=== PATIENT | female | born 1960 | race Caucasian/White ===

== ENCOUNTER → 2016-11-22 | Outpatient (CLI) | payer OTHER ==
[~2016-11-22] MED LIST: AMOX875T PO; ESTR62TA GT; OXYB5TA PO; PRIL20CA9 PO
--- NOTE | 2016-11-22 10:01 | REP ---
CT IACS WITHOUT CONTRAST: HISTORY: Bilateral tinnitus. The internal auditory canals, cochlea, vestibules and semicircular canals are normal in appearance. The ossicles are normal in configuration and position. The scutum are intact. There are areas of dehiscence in the tegmen bilaterally. The middle ear cavities and mastoid air cells are clear. Minimal mucosal thickening is present in the right ethmoid sinus. The nasopharynx is normal in appearance. A 2.7 cm partially calcified meningioma is present arising from the cribriform plate. IMPRESSION: 1. Normal CT IACS. 2. There is a 2.7 cm partially calcified meningioma arising from the cribriform plate. MRI of the brain without and with contrast is recommended for further evaluation. Signed by Vasquez Ellsworth MD 11/22/2016 10:23 A
== END ==
LOC: M RAD 08:07
DX: D32.9 Benign neoplasm of meninges, unspecified (principal)

== ENCOUNTER → 2017-01-25 | Outpatient (CLI) | payer OTHER ==
--- NOTE | 2017-01-26 08:16 | REP ---
MR angiography the brain without contrast: History: Bilateral tinnitus. Technique: 3-D [id number] MR angiography of the brain is acquired in the usual fashion and maximal intensity projection images were generated in rotational format about the vertical and horizontal axes. In addition, source axial T1-weighted images are viewed in cine mode. MR angiographic findings: The distal vertebral arteries are patent and co-dominant. Basilar artery is a little tortuous but widely patent. The posterior cerebral and superior cerebellar vessels are normal and symmetric. The distal internal carotid arteries are unremarkable. Anterior and middle cerebral arteries appear intact. There is no visible acuña aneurysm or arteriovenous malformation. Impression: Unremarkable MR angiography the brain. Signed by Pk Machado MD 01/26/2017 08:08 A
--- NOTE | 2017-01-26 08:38 | REP ---
MRI study of the brain and internal auditory canals: Without and with IV contrast: History: Bilateral tinnitus. Comparison is made with CT study of the internal auditory canals from November 22, 2016. This showed a 2.7 cm meningioma arising from the cribriform plate. Gadolinium enhancement dose: 13 ml of intravenous ProHance. MR technique: Axial and coronal and sagittal imaging planes are utilized. T1 and T2-weighted sequences include turbo spin-echo, spin echo, FLAIR, and diffusion weighted scans. 3D gradient echo sequence is included with thin sections and post gadolinium enhanced axial and coronal imaging planes are utilized. Findings: No bony calvarial lesion is seen. Craniocervical junction and upper cervical cord are normal in appearance. Medulla, anibal, midbrain and cerebellar hemispheres are unremarkable. The internal auditory canals are normal and symmetric. The contents are normal on thin section T2-weighted imaging. No CP angle cistern mass is seen. No intercanalicular or extracanalicular abnormal gadolinium enhancement is seen in either CP angle cistern or in either internal auditory canal. No other cranial nerve lesion is seen. There is no evidence to suggest acute ischemia intracranially on diffusion weighted scans. No evidence of intracranial hemorrhage is seen. Today's study confirms the presence of a somewhat lobulated extra-axial mass arising from the anterior inferior aspect of the falx. This shows similar signal intensity on FLAIR and turbo spin echo T2 and precontrast T1 sequences to normal lawler matter. It is slightly heterogeneous. Homogeneous enhancement is seen within the lesion on postcontrast study compatible with a meningioma. It does not appear to arise from the cribriform plate however, but rather the anteroinferior falx. It measures 2.8 x 2.9 x 3.0 cm. There is no evidence of adjacent edema. No other extra-axial lesion is seen. Scan is otherwise unremarkable. Impression: 3.0 cm meningioma arising from the anterior inferior falx. Otherwise normal MRI brain and posterior fossa IAC examination. Signed by Pk Machado MD 01/26/2017 10:43 A
== END ==
LOC: M RAD 16:13
PROVIDERS: ATTEND Specialist
DX: D32.9 Benign neoplasm of meninges, unspecified (principal); H93.13 Tinnitus, bilateral; H90.3 Sensorineural hearing loss, bilateral; H93.A1 Pulsatile tinnitus, right ear

== ENCOUNTER → 2017-04-14 | Outpatient (CLI) | payer OTHER ==
[~2017-04-14] MED LIST changes: -OXYB5TA PO; +OXYB5TAB10 PO
[2017-04-14 18:01] LABS: BASO # 0.1 K/mm3 (0.0-0.2); BASO % 1.4 % (0.0-1.0); EOS # 0.2 K/mm3 (0.0-0.50); EOS % 2.3 % (0.0-3.0); LARGE UNSTAINED CELL # 0.1 K/mm3 (0.0-0.4); LARGE UNSTAINED CELL % 2.1 % (0.0-4.0); LYMPH # 2.8 K/mm3 (1.5-4.5); LYMPH % 39.7 % (24.0-44.0); MEAN CORPUSCULAR HEMOGLOBIN 34.1 pg (27.0-33.0); MEAN CORPUSCULAR HGB CONC 34.5 g/dl (32.0-36.5); MEAN CORPUSCULAR VOLUME 98.8 fl (80.0-96.0); MONO # 0.5 K/mm3 (0.0-0.8); MONO % 6.9 % (0.0-5.0); NEUTROPHILS # 3.1 K/mm3 (1.8-7.7); NEUTROPHILS % 47.5 % (36.0-66.0); PLATELET COUNT, AUTOMATED 289 k/mm3 (150-450); WHITE BLOOD COUNT 6.6 K/mm3 (4.0-10.0)
[2017-04-14 18:08] LABS: ALBUMIN 3.8 GM/DL (3.2-5.2); ALBUMIN/GLOBULIN RATIO 1.27 (1.00-1.93); ALKALINE PHOSPHATASE 76 U/L (45-117); ALT/SGPT 26 U/L (12-78); ANION GAP 6 MEQ/L (8-16); AST/SGOT 17 U/L (15-37); BILIRUBIN,TOTAL 0.3 MG/DL (0.2-1.0); BLOOD UREA NITROGEN 13 MG/DL (7-18); CALCIUM LEVEL 9.1 MG/DL (8.5-10.1); CARBON DIOXIDE LEVEL 28 MEQ/L (21-32); CHLORIDE LEVEL 109 MEQ/L (98-107); CREATININE FOR GFR 0.74 MG/DL (0.55-1.02); GLOMERULAR FILTRATION RATE > 60.0 (>51); GLUCOSE, FASTING 77 MG/DL (70-105); POTASSIUM SERUM 4.2 MEQ/L (3.5-5.1); SODIUM LEVEL 143 MEQ/L (136-145); TOTAL PROTEIN 6.8 GM/DL (6.4-8.2)
[2017-04-14 18:51] LABS: ERYTHROCYTE SEDIMENTATION RATE 10 mm/hr (0-30)
[2017-04-15 09:55] LABS: ALBUMIN % 61.8 % (55.8-66.1); GAMMA GLOBULIN % 12.4 % (11.1-18.8)
== END ==
LOC: M SMT 11:13
PROVIDERS: ATTEND Psychiatry & Neurology Neurology
DX: R51 Headache (principal)

== ENCOUNTER → 2017-10-14 | Outpatient (REF) | payer OTHER | LOC: M LAB REF 12:14 | DX: J02.9 Acute pharyngitis, unspecified (principal) | CPT/HCPCS: 87081 ==

== ENCOUNTER → 2017-10-20 | Outpatient (CLI) | payer OTHER | LOC: M WHC 09:50 | DX: Z12.31 Encounter for screening mammogram for malignant neoplasm of breast (principal) | CPT/HCPCS: 77067 ==

== ENCOUNTER → 2017-11-03 | Outpatient (REF) | payer OTHER ==
[2017-11-03 13:07] LABS: BASO # 0.1 10^3/uL (0.0-0.2); BASO % 1.7 % (0.0-1.0); EOS # 0.2 10^3/uL (0.0-0.50); EOS % 2.5 % (0.0-3.0); HEMATOCRIT 41.4 % (36.0-47.0); HEMOGLOBIN 13.8 g/dl (12.0-16.0); IMMATURE GRANULOCYTE # 0.1 10^3/uL (0-0); IMMATURE GRANULOCYTE % 0.7 % (0-0); LYMPH # 3.5 10^3/uL (1.5-4.5); MEAN CORPUSCULAR HEMOGLOBIN 31.8 pg (27.0-33.0); MEAN CORPUSCULAR HGB CONC 33.3 g/dl (32.0-36.5); MEAN CORPUSCULAR VOLUME 95.4 fl (80.0-96.0); MONO # 0.9 10^3/uL (0.0-0.8); MONO % 10.4 % (0.0-5.0); NEUTROPHILS # 3.7 10^3/uL (1.8-7.7); NEUTROPHILS % 43.7 % (36.0-66.0); PLATELET COUNT, AUTOMATED 411 10^3/uL (150-450); RED BLOOD COUNT 4.34 10^6/uL (4.00-5.40); WHITE BLOOD COUNT 8.4 10^3/uL (4.0-10.0)
[2017-11-03 13:18] LABS: ALBUMIN 3.8 GM/DL (3.2-5.2); ALBUMIN/GLOBULIN RATIO 1.19 (1.00-1.93); ALKALINE PHOSPHATASE 98 U/L (45-117); ALT/SGPT 32 U/L (12-78); ANION GAP 5 MEQ/L (8-16); AST/SGOT 21 U/L (7-37); BILIRUBIN,TOTAL 0.2 MG/DL (0.2-1.0); BLOOD UREA NITROGEN 10 MG/DL (7-18); CARBON DIOXIDE LEVEL 29 MEQ/L (21-32); CHLORIDE LEVEL 108 MEQ/L (98-107); CHOLESTEROL LEVEL 173 MG/DL (<200); CHOLESTEROL RISK RATIO 3.844 (<5); CREATININE FOR GFR 0.74 MG/DL (0.55-1.02); GLOMERULAR FILTRATION RATE > 60.0 (>51); GLUCOSE, FASTING 86 MG/DL (70-105); HDL CHOLESTEROL 45 MG/DL (>40); NON-HDL-C 128 MG/DL; POTASSIUM SERUM 4.4 MEQ/L (3.5-5.1); SODIUM LEVEL 142 MEQ/L (136-145); TRIGLYCERIDES LEVEL 200 MG/DL (<150)
[2017-11-03 13:22] LABS: TOTAL 25(OH) VITAMIN D 32.4 NG/ML (30.0-100.0)
== END ==
LOC: M SFHCADAM 11:14
DX: N39.46 Mixed incontinence (principal); F17.210 Nicotine dependence, cigarettes, uncomplicated; K21.9 Gastro-esophageal reflux disease without esophagitis
CPT/HCPCS: 84443

== ENCOUNTER → 2017-11-10 | Outpatient (REF) | payer OTHER ==
[2017-11-10 21:17] LABS: FREE T3 3.1 PG/ML (2.2-4.0)
== END ==
LOC: M SFHCADAM 13:33
DX: E01.0 Iodine-deficiency related diffuse (endemic) goiter (principal)

== ENCOUNTER → 2017-11-29 | Outpatient (CLI) | payer OTHER | LOC: M RAD 07:12 | DX: E04.2 Nontoxic multinodular goiter (principal) | CPT/HCPCS: 76536 ==

== ENCOUNTER → 2017-12-20 | Outpatient (REF) | payer OTHER | LOC: M LAB REF 12:15 | DX: E04.1 Nontoxic single thyroid nodule (principal) ==

== ENCOUNTER → 2018-05-23 | Outpatient (CLI) | payer OTHER ==
[~2018-05-23] MED LIST changes: -AMOX875T PO; +E-Z-GAS II EFFERVESCENT PACKET (SODIUM BICARB./CITRIC ACID/SIMETHICONE) As Ordered; +E-Z-HD 98% w/w 340GM SUSP BTL As Ordered; +E-Z-PAQUE 96% w/w SUSP 176GM BTL As Ordered; -ESTR62TA GT; -OXYB5TAB10 PO; -PRIL20CA9 PO
== END ==
LOC: M RAD 08:13
DX: K21.9 Gastro-esophageal reflux disease without esophagitis (principal); K44.9 Diaphragmatic hernia without obstruction or gangrene
CPT/HCPCS: 74241

== ENCOUNTER 2018-08-30 10:14 | Outpatient (RCR) | payer OTHER | END 2018-09-15 | LOC: M PT 10:14 | DX: N39.46 Mixed incontinence (principal) | CPT/HCPCS: 97110 ==

== ENCOUNTER 2018-09-02 11:56 | Emergency (ER) | payer OTHER | END 2018-09-02 13:19 | disposition home or self-care (01) | LOC: M ED 11:56 | DX: K04.7 Periapical abscess without sinus (principal); K02.9 Dental caries, unspecified; Z88.8 Allergy status to other drugs, medicaments and biological substances; Z79.899 Other long term (current) drug therapy | CPT/HCPCS: 99283 ==

== ENCOUNTER → 2018-11-01 | Outpatient (CLI) | payer OTHER ==
[~2018-11-01] MED LIST changes: +AMOX875T PO; -E-Z-GAS II EFFERVESCENT PACKET (SODIUM BICARB./CITRIC ACID/SIMETHICONE) As Ordered; -E-Z-HD 98% w/w 340GM SUSP BTL As Ordered; -E-Z-PAQUE 96% w/w SUSP 176GM BTL As Ordered; +ESTR62TA GT; +OXYB5TAB10 PO; +PENI500T PO; +PERC5TAB12 PO; +PRIL20CA9 PO
--- NOTE | 2018-11-01 08:55 | REPMRS ---
Patient History The patient states she has not had a clinical breast exam in over a year. Patient is postmenopausal. No known family history of cancer. Taking estrogen for 11 years 11 months. Digital Woman Screen Mammo: November 01, 2018 - Exam #: [id number] Bilateral CC and MLO view(s) were taken. Technologist: Gricelda Anderson, Technologist Prior study comparison: October 20, 2017, digital woman screen mammo performed at [facility]. October 14, 2016, digital woman screen mammo performed at [facility]. September 19, 2015, digital woman screen mammo performed at [facility]. FINDINGS: The breast tissue is heterogeneously dense. This may lower the sensitivity of mammography. There is a stable, well-circumscribed subcentimeter nodule in each breast unchanged from multiple prior studies. There is a moderate amount of heterogeneously dense fibroglandular tissue which is fairly symmetric. There is no interval development of dominant mass, architectural distortion, or clustered microcalcification typical of malignancy. There has been no change in the appearance of the mammogram from the prior studies. 3-D tomosynthesis shows no additional findings. Assessment: BI-RADS/ACR category 2 mammogram. Benign finding(s). Recommendation Routine screening mammogram of both breasts in 1 year (for women over age 40). This patient's Lifetime Breast Cancer RIsk is estimated at 6.5 %. This mammogram was interpreted with the aid of an FDA-approved computer-aided dectection system. Electronically Signed By: Jose Machado MD 11/01/18 [id number]
--- NOTE | 2018-11-02 09:47 | DEXA ---
AP SPINE L1 - L4 1.218 0.2 0.1 LT FEMUR TOTAL 1.025 0.1 0.9 LT NECK 0.960 -0.6 0.5 RT FEMUR TOTAL 0.994 -0.1 0.6 RT NECK 0.941 -0.7 2.4 TOTAL BODY TOTAL OTHER COMMENTS: Normal bone densitometry of the spine and hips. The density of the spine has decreased 6.5% since the initial exam on 03/24/2006. The spine density has decreased 0.8% since the most recent exam on 10/14/2016. The density of the left hip has decreased 3.4% since the initial exam on 03/24/2006. The density of the left hip has increased 1.0% since the most recent exam on 10/14/2016. The density of the right hip has decreased 6.5% since the initial exam on 03/24/2006. The density of the right hip has decreased 0.2% since the most recent exam on 10/14/2016. FOLLOW-UP: Recommendation for the next bone density exam: 2 years. ANNI
== END ==
LOC: M WHC 07:53
PROVIDERS: ATTEND Physician Assistant Medical
DX: Z12.31 Encounter for screening mammogram for malignant neoplasm of breast (principal); Z78.0 Asymptomatic menopausal state

== ENCOUNTER → 2018-12-22 | Outpatient (CLI) | payer OTHER ==
--- NOTE | 2018-12-22 12:55 | REP ---
RIGHT SHOULDER, THREE VIEWS: Three views of the right shoulder performed. There is no acute fracture or dislocation. There is mild spurring at the acromioclavicular joint. IMPRESSION: Mild degenerative changes of acromioclavicular joint. Electronically Signed by Randy Trejo MD 12/25/2018 11:16 A
--- NOTE | 2018-12-22 13:38 | REP ---
CHEST, TWO VIEWS: COMPARISON: 12/08/2014. There is no evidence of acute infiltrate. No pleural effusion is seen. The heart is normal in size. The mediastinal silhouette is unremarkable. The visualized osseous structures are intact. There are mild degenerative changes of the spine. IMPRESSION: No acute pulmonary disease. Electronically Signed by Randy Trejo MD 12/25/2018 11:17 A
== END ==
LOC: M ADAMS 11:44
PROVIDERS: ATTEND Physician Assistant Medical
DX: M19.011 Primary osteoarthritis, right shoulder (principal); M25.511 Pain in right shoulder; R05 Cough

== ENCOUNTER → 2019-02-03 | Outpatient (REF) | payer OTHER ==
[2019-02-03 19:06] LABS: BASO # 0.1 10^3/uL (0.0-0.2); BASO % 1.2 % (0.0-1.0); EOS # 0.1 10^3/uL (0.0-0.50); EOS % 1.6 % (0.0-3.0); HEMATOCRIT 43.5 % (36.0-47.0); HEMOGLOBIN 14.4 g/dl (12.0-15.5); LYMPH # 2.7 10^3/uL (1.5-4.5); LYMPH % 32.7 % (24.0-44.0); MEAN CORPUSCULAR HEMOGLOBIN 32.4 pg (27.0-33.0); MEAN CORPUSCULAR HGB CONC 33.1 g/dl (32.0-36.5); NEUTROPHILS # 4.3 10^3/uL (1.8-7.7); PLATELET COUNT, AUTOMATED 408 10^3/uL (150-450); RED BLOOD COUNT 4.44 10^6/uL (4.00-5.40); WHITE BLOOD COUNT 8.3 10^3/uL (4.0-10.0)
[2019-02-03 19:26] LABS: ALBUMIN 3.7 GM/DL (3.2-5.2); ALT/SGPT 22 U/L (12-78); BILIRUBIN,TOTAL 0.4 MG/DL (0.2-1.0); BLOOD UREA NITROGEN 13 MG/DL (7-18); CALCIUM LEVEL 8.9 MG/DL (8.5-10.1); CARBON DIOXIDE LEVEL 30 MEQ/L (21-32); CHLORIDE LEVEL 105 MEQ/L (98-107); CHOLESTEROL LEVEL 169 MG/DL (<200); CHOLESTEROL RISK RATIO 3.673 (<5); CREATININE FOR GFR 0.67 MG/DL (0.55-1.30); GLOMERULAR FILTRATION RATE > 60.0 (>51); GLUCOSE, FASTING 87 MG/DL (70-100); HDL CHOLESTEROL 46 MG/DL (>40); LDL CHOLESTEROL 98.8 MG/DL (<100); NON-HDL-C 123 MG/DL; POTASSIUM SERUM 4.1 MEQ/L (3.5-5.1); SODIUM LEVEL 140 MEQ/L (136-145); THYROID STIMULATING HORMONE 0.958 uIU/ML (0.358-3.740); TOTAL PROTEIN 6.8 GM/DL (6.4-8.2); TRIGLYCERIDES LEVEL 121 MG/DL (<150)
== END ==
LOC: M SFHCADAM 08:13
PROVIDERS: ATTEND Physician Assistant Medical
DX: G47.33 Obstructive sleep apnea (adult) (pediatric) (principal); F17.210 Nicotine dependence, cigarettes, uncomplicated; K21.9 Gastro-esophageal reflux disease without esophagitis; R05 Cough

== ENCOUNTER → 2019-02-03 | Outpatient (CLI) | payer OTHER | LOC: M ADAMS 11:33 | PROVIDERS: ATTEND Physician Assistant Medical | DX: G47.33 Obstructive sleep apnea (adult) (pediatric) (principal); F17.210 Nicotine dependence, cigarettes, uncomplicated; K21.9 Gastro-esophageal reflux disease without esophagitis; R05 Cough ==

== ENCOUNTER → 2019-11-14 | Outpatient (CLI) | payer OTHER ==
[~2019-11-14] MED LIST changes: +CALC600T60 PO; +DEPA250T2 PO; +DITR1TAB PO; +HYDR-643 PO; +OMEP-218 PO
--- NOTE | 2019-11-14 17:18 | REP ---
BILATERAL MAMMOGRAM WITH 3D TOMOSYNTHESIS: No family history of breast cancer. Kyle Kathleen lifetime risk of breast cancer 6.4%. COMPARISON: 11/01/2018 as well as other prior exams. MLO and CC views of both breasts performed. Moderately dense breast parenchyma is again noted bilaterally. A subcentimeter nodular opacity in the posterior upper outer quadrant of the right breast is stable. Another is seen superficially in the lower inner left breast, stable. There is an apparent well circumscribed nodule 1.7 cm in diameter in the outer right breast at about 8-o'clock region. No other new mass is seen. No architectural distortion is seen. No clustered microcalcifications are seen. IMPRESSION: ACR 0 incomplete. There appears to be a well circumscribed nodule in the 8-o'clock region of the right breast, mid third. Recommend spot compression views and ultrasound to further evaluate. BIRADS 0: BI-RADS/ACR category 0 mammogram, Incomplete: Need additional imaging evaluation and/or prior mammograms for comparison. This mammogram was interpreted with the aid of an FDA-approved computer-aided detection system. The patient states she/he has not had a clinical breast exam in over a year. The patient letter being requested is M0.
== END ==
LOC: M WHC 13:43
PROVIDERS: ATTEND Nurse Practitioner Women's Health
DX: Z12.31 Encounter for screening mammogram for malignant neoplasm of breast (principal); N63.11 Unspecified lump in the right breast, upper outer quadrant

== ENCOUNTER → 2019-11-26 | Outpatient (CLI) | payer OTHER ==
--- NOTE | 2019-11-26 17:12 | REP ---
Digital diagnostic unilateral right breast mammography with CAD and focused right breast sonography: History: Screening mammography November 14, 2019 was BIRADS category zero because of a well-circumscribed nodule in the 8 o'clock position for which diagnostic imaging was recommended. Comparison mammography is also reviewed from October 20, 2017 and November 01, 2018. Findings: Magnified focal spot compression CC true mediolateral, and MLO views of the right breast confirm the presence of a rounded oval shaped fairly well circumscribed opacity in the right breast. Breast parenchyma is heterogeneously dense as before. No other suspicious abnormality is observed mammographically. Sonographic findings: The lateral aspect of the right breast is scanned sonographically. At 9 o'clock position in the right breast, 2 cm from the nipple there is a simple cyst measuring 1.5 x 1.4 x 0.7 cm in diameter. This is felt to account for the mammographic opacity. Addition, in the 1 o'clock position of the right breast there is a hypoechoic lesion with well-circumscribed margins measuring 1.2 x 1.0 x 0.9 cm, 1 cm from the nipple. This has a well defined back wall and enhanced through transmission. No observable Doppler flow. This does not meet the criteria of a simple cyst and may be complex cyst versus fibroadenoma versus other lesion. Impression: BIRADS category four suspicious right breast imaging. There is a simple cyst corresponding to the mammographic opacity in the right lateral breast at 9 o'clock. However, ultrasound demonstrates a second hypoechoic lesion 1.2 cm in diameter in the 1 o'clock position, 1 cm from the nipple which may be complex cyst versus fibroadenoma. Ultrasound guided needle biopsy and/or aspiration recommended for this lesion. This does not mammographic correlate BIRADS 4: BI-RADS/ACR category 4 mammogram. Suspicious Abnormality - biopsy should be considered. This mammogram was interpreted with the aid of an FDA-approved computer-aided detection system. The patient letter being requested is m4 .
== END ==
LOC: M WHC 09:23
PROVIDERS: ATTEND Nurse Practitioner Women's Health
DX: D48.61 Neoplasm of uncertain behavior of right breast (principal)

== ENCOUNTER → 2019-12-12 | Outpatient (CLI) | payer OTHER ==
[2019-12-12 15:09] VITALS: BP 168/98
--- NOTE | 2019-12-12 16:30 | REP ---
Digital diagnostic unilateral right breast mammography: With CAD: History: Marker clip placement views. Comparison mammography and sonography November 26, 2019. The patient is status post ultrasound-guided needle biopsy procedure with clip placement. Findings: Mediolateral and craniocaudal views of the right breast demonstrate a needle biopsy marker clip projecting just medial to the plane of the nipple superiorly in the right breast at approximately 1 o'clock position. There was no mammographic abnormality in this location. There is no evidence of hematoma. Impression: Marker clip in position superiorly in the right breast as above.
--- NOTE | 2019-12-12 19:43 | REP ---
Focused right breast sonography: History: Ultrasound guidance for ultrasound-guided needle biopsy right breast. Findings: Sonographic guidance is provided to Dr. Reeder who performed ultrasound-guided needle biopsy and marker clip placement procedure. The target is seen to be a 1.1 x 1.0 x 1.0 cm hypoechoic lesion as observed on November 26, 2019.
--- NOTE | 2019-12-12 20:40 | ROOPDOC ---
[facility] Report Of Operation Report of Operation DATE OF PROCEDURE: 12/12/19 PREPROCEDURE DIAGNOSES: Right breast mass, possibly cystic lesion POSTPROCEDURE DIAGNOSES: Right breast complex cystic lesion PROCEDURE: Ultrasound-guided attempted aspiration of right breast complex cystic lesion, ultrasound-guided biopsy of right breast complex cystic lesion SURGEON: Elvis Cazares INKING MACHINE TENDER: ANESTHESIA: Local ESTIMATED BLOOD LOSS: Approximately 1 mL. COMPLICATIONS: None REMARKS: Postprocedure mammogram showed clip in appropriate location DESCRIPTION OF PROCEDURE: Lidocaine 1% LOT [id number] Expiration 11/2020 Sodium Bicarbonate 8.4% LOT [id number] Expiration 06/2021 Hydromark clip LOT [id number] Expiration 04/2022 REF [id number] titanium shape 4 (close coil) Bx device: [employer] [id number] x10 cm LOT HUEN [id number] Expiration 09/2022 Informed consent was obtained. The most common risk and possible complications including bleeding, hematoma, bruising, infection, injury to surrounding structures were explained to the patient and she expressed understanding. Patient was taken to the procedure room and placed on the bed in the supine position with the right upper extremity placed above the head. Appropriate time out was done stating patients name, date of , and the procedure to be performed. The right breast was prepped and draped in the usual fashion. The ultrasound was used to confirm the location of the lesion in the right breast at 12:00 1.5 centimeters from the nipple. Plain Lidocaine 1% and 8.4% sodium bicarbonate 10:1 mix was used to numb the skin, the biopsy site and tissues along the anticipated biopsy tract. 18 G needle was used to tempt to aspirate content if the lesion as it is possible that it is a cyst. 2 cc of viscous brown material was aspirated. Attempt was made to try to aspirate entire cyst content but unfortunately it was unsuccessful. The cystic lesion did not collapse. Decision was made to proceed with the biopsy of the lesion. Small skin incision was made with blade number 11. BARD Marquee 14G cannula with introducer ([id number]) was inserted through the incision and advanced under the ultrasound guidance to position immediately adjacent to the lesion. Next, the introducer was removed and BARD Marquee 14G biopsy device was places in the cannula. Pre-biopsy imaging, and post-biopsy imaging were captured. Five good c ore biopsies were taken at various levels of the lesion. Specimen was placed in formaldehyde, labeled with appropriate biopsy site and patients name, and sent to pathology for evaluation. Next, the biopsy device was withdrawn and a clip introducer was inserted into the biopsy site via the cannula. The Hydromark clip was deployed under direct vision. Post-clip placement image was captured. Manual pressure over the biopsy cavity and tract was held after the clip introducer was withdrawn. No bleeding was noted upon removal of the pressure. Post-biopsy mammogram of the right breast was obtained and showed clip in expected position. Postprocedural dressing was placed. Patient tolerated procedure well. Discharge instructions were discussed with the patient and she expressed understanding. ELVIS CAZARES DO Dec 12, 2019 20:40
== END ==
LOC: M WHCPRO 13:27
PROVIDERS: ATTEND Surgery
DX: N64.89 Other specified disorders of breast (principal)

== ENCOUNTER → 2020-06-30 | Outpatient (REF) | payer OTHER ==
[2020-06-30 13:04] LABS: BASO # 0.1 10^3/uL (0.0-0.2); BASO % 1.1 % (0.0-1.0); EOS # 0.1 10^3/uL (0.0-0.5); EOS % 0.7 % (0.0-3.0); HEMATOCRIT 37.2 % (36.0-47.0); HEMOGLOBIN 13.3 g/dl (12.0-15.5); LYMPH # 2.7 10^3/uL (1.5-5.0); LYMPH % 33.2 % (24.0-44.0); MEAN CORPUSCULAR HEMOGLOBIN 33.4 pg (27.0-33.0); MEAN CORPUSCULAR HGB CONC 35.8 g/dl (32.0-36.5); MEAN CORPUSCULAR VOLUME 93.5 fl (80.0-96.0); MONO # 0.9 10^3/uL (0.0-0.8); MONO % 10.3 % (0.0-5.0); NEUTROPHILS # 4.5 10^3/uL (1.5-8.5); NEUTROPHILS % 54.1 % (36.0-66.0); PLATELET COUNT, AUTOMATED 462 10^3/uL (150-450); RED BLOOD COUNT 3.98 10^6/uL (4.00-5.40); WHITE BLOOD COUNT 8.3 10^3/uL (4.0-10.0)
[2020-06-30 13:27] LABS: ALT/SGPT 25 U/L (12-78); BILIRUBIN,TOTAL 0.3 MG/DL (0.2-1.0); BLOOD UREA NITROGEN 14 MG/DL (7-18); CALCIUM LEVEL 10.1 MG/DL (8.5-10.1); CARBON DIOXIDE LEVEL 32 MEQ/L (21-32); CHLORIDE LEVEL 94 MEQ/L (98-107); CHOLESTEROL LEVEL 126 MG/DL (<200); CREATININE FOR GFR 0.75 MG/DL (0.55-1.30); FREE T4 1.22 NG/DL (0.76-1.46); GLOMERULAR FILTRATION RATE > 60.0 (>51); GLUCOSE, FASTING 91 MG/DL (70-100); HDL CHOLESTEROL 39 MG/DL (>40); LDL CHOLESTEROL 63 MG/DL (<100); NON-HDL-C 87 MG/DL; POTASSIUM SERUM 4.3 MEQ/L (3.5-5.1); SODIUM LEVEL 131 MEQ/L (136-145); THYROID STIMULATING HORMONE 0.697 uIU/ML (0.358-3.740); TOTAL PROTEIN 6.7 GM/DL (6.4-8.2); TRIGLYCERIDES LEVEL 122 MG/DL (<150)
== END ==
LOC: M SFHCADAM 12:23
PROVIDERS: ATTEND Physician Assistant Medical
DX: I10 Essential (primary) hypertension (principal); K21.9 Gastro-esophageal reflux disease without esophagitis; R60.1 Generalized edema; E04.2 Nontoxic multinodular goiter

== ENCOUNTER → 2020-07-03 | Outpatient (CLI) | payer OTHER ==
--- NOTE | 2020-07-17 17:42 | REP ---
DIGITAL DIAGNOSTIC UNILATERAL RIGHT BREAST MAMMOGRAPHY WITH CAD, 3D TOMOGRAPHY, AND TARGETED RIGHT BREAST ULTRASOUND HISTORY: Six month follow-up. Benign biopsy under ultrasound guidance for a hypoechoic nodule. Simple cyst also seen on prior imaging. COMPARISON: Mammography 12/12/2019 and 11/26/2019. MAMMOGRAPHIC FINDINGS: The previously identified cyst is again seen in the upper outer quadrant measuring 1.3 cm in greatest diameter. There is a marker clip in the superomedial quadrant of the right breast, which is unchanged from the comparison mammogram done post biopsy on 12/12/2019. Breast parenchyma remains heterogeneously dense in a pattern which may inhibit the sensitivity of mammography. Volpara breast parenchymal density pattern is C. No other significant mammographic findings. SONOGRAPHIC FINDINGS: Targeted sonographic imaging of the right breast at the area of previous biopsy 1 o'clock position shows a smaller remnant of the biopsy target, measurements 5 x 4 x 5 mm. This remains heterogeneously hypoechoic. There is a HydroMARK clip adjacent to the lesion on sonography. No progressive change is seen. IMPRESSION: BI-RADS Category 2 benign findings. Annual screening mammography can resume. This mammogram was read with the assistance of an FDA approved computer-aided detection device. Patient letter: M2 dense. ANNI
== END ==
LOC: M WHC 09:30
PROVIDERS: ATTEND Surgery
DX: N60.01 Solitary cyst of right breast (principal); Z86.018 Personal history of other benign neoplasm
CPT/HCPCS: 76642; 77065; G0279

== ENCOUNTER → 2020-07-15 | Outpatient (CLI) | payer OTHER ==
--- NOTE | 2020-07-18 15:21 | ECHO ---
DATE OF PROCEDURE: 07/15/2020 Height: 154 cm Weight: 79 kg REFERRING PHYSICIAN: FLORECITA Davis INDICATION: Edema MEASUREMENTS: IV 1.1 LV 4.9 LVPW 0.9 LA 3.9 Aorta 2.7 IVC 1.2 Mitral E wave velocity 75, A wave 83. E prime septal 5.2 E prime lateral 7.9 FINDINGS: The study is of acceptable technical quality. The patient is in sinus rhythm. Normal LV size with normal LV systolic function, estimated left ventricular ejection fraction (LVEF) 60 to 65%. Right ventricle also appears to be normal size and has normal systolic function. Both atria appear normal. Aortic, mitral and tricuspid valves appear normal. Pulmonic valve was not well seen. No pericardial effusion is noted. Inferior vena cava is of normal size and appropriately collapses with inspiration indicative of normal central venous pressure. Aortic root, limited views of aortic arch and abdominal aorta all appear normal. Doppler interrogation reveals competent aortic and mitral valves. There is trace tricuspid insufficiency with normal calculated pulmonary artery pressure. Mitral inflow pattern and tissue Doppler imaging of mitral annulus reveal grade 1 diastolic dysfunction. CONCLUSIONS: 1. Study is of acceptable technical quality, the patient is in sinus rhythm. 2. Normal LV size with normal LV systolic function and grade 1 diastolic dysfunction. 3. No significant valvular disease. 4. Normal central venous pressure and normal pulmonary artery pressure. COMMENTS: No obvious explanation for peripheral edema. MTDD
== END ==
LOC: M CARPUL 09:24
PROVIDERS: ATTEND Physician Assistant Medical
DX: R60.9 Edema, unspecified (principal); I10 Essential (primary) hypertension

== ENCOUNTER → 2020-08-26 | Outpatient (CLI) | payer OTHER ==
--- NOTE | 2020-08-27 23:48 | ECWPNPC ---
PATIENT NAME: MICHAEL FUNES : 1960 GENDER: FEMALE VISIT DATE: 08/26/2020 DISCHARGE DATE: 08/26/20 1024 VISIT LOCKED DATE TIME: PHYSICIAN: ZAKI ADAM PHYSICIAN PAGER NO: ACTIVE RESOURCE: ZAKI ADAM REASON FOR APPOINTMENT 1. LOW BACK PAIN HISTORY OF PRESENT ILLNESS DEPRESSION SCREENING: PHQ-2 (2015 EDITION) LITTLE INTEREST OR PLEASURE IN DOING THINGS?NOT AT ALL FEELING DOWN, DEPRESSED, OR HOPELESS?NOT AT ALL TOTAL SCORE0 GENERAL: 60-YEAR-OLD FEMALE REFERRED BY FLACO BEL[facility] FOR EVALUATION OF CHRONIC LOW BACK PAIN. REPORTS LONG HISTORY OF INTERMITTENT LOW BACK PAIN ESPECIALLY AFTER EXERTION. STATES THAT SINCE SHE RETIRED 3 YEARS AGO AND HAS GAINED WEIGHT HER PAIN HAS INCREASED. CHIEF COMPLAINT IS BURNING PAIN IN BOTH LEGS AFTER WALKING 50 FEET. STATES HER SYMPTOMS RESOLVE WHEN SHE SITS DOWN. MRI OF THE LS-SPINE DONE RECENTLY IS BASICALLY WITHIN NORMAL LIMITS. SHOWING SOME MILD DEGENERATIVE CHANGES. DENIES NIGHTTIME AWAKENINGS DUE TO PAIN. STATES PAIN IMPROVES WITH REST AND TYLENOL. NERVE CONDUCTION STUDIES DONE OF THE LOWER EXTREMITIES HAVE BEEN WITHIN NORMAL LIMITS. STATES SHE ATTENDED ONE DAY OF PHYSICAL THERAPY AND THEN PRESCRIPTION RAN OUT. REVIEWED TREATMENT OPTIONS AVAILABLE AT OUR [facility]. SHE IS AWARE THAT IF HER SYMPTOMS GET WORSE AND INTERFERE WITH HER ADLS SHE WOULD BE ABLE TO RETURN HERE FOR REEVALUATION.- - -. FALL RISK SCREENING: SCREENING :NO FALLS REPORTED IN THE LAST YEAR PAIN SCREENING: PATIENT HAS A COMPLAINT OF ACUTE OR CHRONIC PAIN :YES LOCATION OF PAIN:LOW BACK INTENSITY OF PAIN (SCALE OF 1 TO 10):1 WHAT DOES YOUR PAIN FEEL LIKE:SHARP DURATION:INTERMITTENT PAIN IS INCREASED BY:ACTIVITIES, PROLONGED STANDING PATIENT STATES, "LEGS FEEL LIKE THEY ARE FIRE WHEN WALKING" PLAN/GOALS/TREATMENT/INTERVENTION/FOLLOW UP:SEE PLAN NURSING NOTE: - - -. PAIN CENTER INTAKE QUESTIONS: DO YOU HAVE A HISTORY OF MRSA? :NO DO YOU TAKE A BLOOD THINNERS? :NO DO YOU HAVE ANY BLEEDING DISORDERS? :NO ANY NEW NUMBNESS OR WEAKNESS IN YOUR LEGS OR ARMS? :NO ANY PACEMAKER,DEFIBRILLATOR, OR DORSAL COLUMN STIMULATOR? :NO DO YOU HAVE ANY RASHES OR OPEN SORES? :NO ARE YOU ALLERGIC TO IV DYE? :NO ARE YOU DIABETIC? :NO ANY NEW PROBLEMS WITH YOUR MEDICATIONS? :NO HAVE YOU RECEIVED A VACCINE IN THE PAST 30 DAYS? :NO DO YOU PLAN TO RECEIVE A VACCINE IN THE NEXT 21 DAYS? :NO DO YOU NEED ANY PRESCRIPTION? :NO DO YOU TAKE ANY IMMUNOSUPPRESSIVE MEDICATIONS? :NO CURRENT MEDICATIONS TAKING CALCIUM + D3 600-200 MG-UNIT TABLET 1 TAB(S) ORALLY TWICE A DAY TAKING DIVALPROEX SODIUM 500 MG TABLET DELAYED RELEASE ORALLY DAILY TAKING QUETIAPINE FUMARATE 25 MG TABLET 1 TABLET AT BEDTIME ORALLY ONCE A DAY TAKING CHLORTHALIDONE 25 MG TABLET 1 TABLET IN THE MORNING WITH FOOD ORALLY ONCE A DAY TAKING OXYBUTYNIN CHLORIDE ER 10 MG TABLET EXTENDED RELEASE 24 HOUR 1 TABLET ORALLY TWICE DAILY TAKING OMEPRAZOLE 20 MG CAPSULE DELAYED RELEASE TAKE ONE CAPSULE BY MOUTH TWICE A DAY MEDICATION LIST REVIEWED AND RECONCILED WITH THE PATIENT PAST MEDICAL HISTORY GERD MIXED URGE/STRESS URINARY INCONTINENCE FARIDA DEP RENEE 12/02 FEV1 2.48, REPEAT IN 6-12 M 09/02 MRI - BRAIN MENINGIOMA - DR CALLAHAN NONTOXIC MULTINODULAR GOITER, NEG FNA 12/20/17 HEADACHES - NEURO IRENE- CPAP CTS - L, DECLINES SURGERY 07/04 EKG LVH, LAE, RBBB - REFERRED TO [facility] 10/03 NEG STRESS ECHO, [facility] ORTHOSTATIC HYPOTENSION ALLERGIES ANTIHISTAMINE: RACING HEART - ALLERGY ZONISAMIDE: DIZZY, WORD SEARCHING - ALLERGY HYDROXYZINE HCL: "DIDN'T FEEL WELL" - ALLERGY TRAZODONE HCL: NIGHTMARES - ALLERGY SURGICAL HISTORY HYSTERECTOMY, TOTAL WITH BSO [address]CLAUDIA MANCIA 12/2017 COLONOSCOPY 03/17/16 RIGHT BREAST ULTRASOUND BIOPSY 11/2019 FAMILY HISTORY FATHER: ALIVE 79 YRS, EYE PROBLEMS, EMPHYSEMA/COPD - ESTRANGED MOST OF HER LIFE (L[place] IN [place]) MOTHER: ALIVE 76 YRS, HTN, HEAD WOOD GRINDER CANCER OVARIAN?, HYPERLIPIDEMIA SIBLINGS: ALIVE 55 YRS, REFUSES TO GO TO THE SON(S): ALIVE 36 YRS, HTN, HYPERLIPIDEMIA DAUGHTER(S): ALIVE 31 YRS, PCOS 1 BROTHER(S) . 1 SON(S) , 1 DAUGHTER(S) . NO KNOWN FIRST DEGREE RELATIVE WITH COLORECTAL CA, OR BREAST CA.FAMILY H/O: MIGRAINE, HTN, THYROID DISORDER, COPD, RA. SOCIAL HISTORY GENERAL: TOBACCO USE ARE YOU A:CURRENT SMOKER ARE YOU INTERESTED IN QUITTING?NOT READY TO QUIT PT DOES NOT WISH TO HAVE SMOKING CESSATION HANDOUT COUNSELED THE PATIENT ON SMOKING EFFECTS, EDUCATION [id number]/10/2020 HOW MANY CIGARETTES A DAY DO YOU SMOKE?11-20 HOW SOON AFTER YOU WAKE UP DO YOU SMOKE YOUR FIRST CIGARETTE?6-30 MIN HOW OFTEN DO YOU SMOKE CIGARETTES?EVERY DAY PATIENT COUNSELED ON THE DANGERS OF TOBACCO USE AND URGED TO QUIT:08/26/2020 LATEX QUESTIONNAIRE LATEX ALLERGY : HAVE YOU EVER DEVELOPED ANY TYPE OF REACTION AFTER HANDLING LATEX PRODUCTS SUCH RUBBER GLOVES, CONDOMS, DIAPHRAGMS, BALLOONS, SOCKS, OR UNDERWEAR?NO LATEX ALLERGY : HAVE YOU EVER DEVELOPED ANY TYPE OF REACTION DURING OR AFTER DENTAL APPOINTMENT, VAGINAL/RECTAL EXAMINATION, SURGICAL PROCEDURE, OR ANY OTHER EXPOSURE?NO LATEX RISK : HAVE YOU EVER HAD ANY DIFFICULTY BREATHING OR HIVES AFTER EATING OR HANDLING ANY FRUITS, OR VEGETABLES; SUCH KIWI, BANANAS, STONE FRUITS, OR CHESTNUTSNO LATEX RISK : DO YOU HAVE A PREVIOUS PERSONAL HISTORY OF MORE THAN NINE SURGERIES, SPINA BIFIDA, OR REPEATED CATHERIZATIONS? NO LATEX RISK : ARE YOU FREQUENTLY EXPOSED TO LATEX PRODUCTS IN YOUR OCCUPATION?NO DATE ASKED : 08/26/2020 ALCOHOL SCREENING DID YOU HAVE A DRINK CONTAINING ALCOHOL IN THE PAST YEAR?NO POINTS0 INTERPRETATIONNEGATIVE RECREATIONAL DRUG USE DRUG USE?NO CAFFEINE CAFFEINE USE?YES 1 POT OF COFFEE DAILY HOW OFTEN AND HOW MUCH? SEVERAL ALL DAY ON DAYS OFF LEARNING BARRIERS / SPECIAL NEEDS CHANGE FROM LAST VISIT?NO BARRIERS TO LEARNING?NO HEARING IMPAIRED?NO VISION IMPAIRED?NO COGNITIVELY IMPAIRED?NO READINESS TO LEARN?YES LEARNING PREFERENCES?NO LEARNING CAPABILITIES PRESENT?YES EMOTIONAL BARRIERS?NO SPECIAL DEVICES?NO OCCUPATION: [employer] 3 DAYS WEEKLY. DIET: REGULAR. EXERCISE: NO REGULAR EXERCISE. MARITAL STATUS: . OTHERS AT HOME: . ADVANCE DIRECTIVE ADVANCE DIRECTIVE DISCUSSED WITH PATIENT:YES DISCUSSED WITH PATIENT, PATIENT DENIES ASSISTANCE. HOSPITALIZATION/MAJOR DIAGNOSTIC PROCEDURE VAGINAL DELIVERIES 1983 REVIEW OF SYSTEMS CONSTITUTIONAL: ANY RECENT FEVER NO . CHILLS NO . WEIGHT CHANGE OF UNKNOWN REASONS NO . GASTROENTEROLOGY: NEW UNEXPLAINABLE CHANGES IN BOWEL CONTROL NO . CONSTIPATION NO . GENITOURINARY: ANY NEW CHANGE IN BLADDER CONTROL? NO . NEUROLOGY: NEW ONSET DIZZINESS OR NEUROLOGICAL CHANGES NOT MENTIONED NO . NEW NUMBNESS OR PAIN PATTERNS NOT MENTIONED AND PERTINENT TO TODAY'S VISIT NO . CARDIOLOGY: NEW CHEST PRESSURE NO . NEW CHEST PAIN NO . RESPIRATORY: UNEXPLAINABLE COUGH NO . NEW SHORTNESS OF BREATH NO . VITAL SIGNS WT 176.8 LBS, HT 61.5 IN, BMI 32.86 INDEX, BP 128/70 MM HG, HR 75 /MIN, RR 18 /MIN, TEMP 97.3 F, OXYGEN SAT % 96%, SAFE IN ENV? (Y/N) YES, NA INITIALS PR 09:44, REVIEWED BY: MONO ERICKSON RECREATION DIRECTOR. EXAMINATION GENERAL EXAMINATION: GENERALNO ACUTE DISTRESS, WELL NOURISHED AND HYDRATED. PSYCHAPPROPRIATE MOOD AND AFFECT . FACE:UNREMARKABLE. NECK:NO LYMPHADENOPATHY, SUPPLE, NO THYROMEGALLY, NO JVD OR BRUITS. ASSESSMENTS NEUROPATHY - G62.9 (PRIMARY) OTHER CHRONIC PAIN - G89.29 LOW BACK PAIN - M54.5 TREATMENT NEUROPATHY NOTES: PATIENT FOLLOWS CLOSELY WITH NEUROLOGY FOR BENIGN BRAIN LESION THAT THEY ARE FOLLOWING YEARLY. PATIENT MAY BENEFIT FROM A TRIAL OF GABAPENTIN FOR BURNING PAIN IN HER LOWER EXTREMITIES BUT I WILL LEAVE THAT TO FLACO BELTRAN'S DISCRETION. TODAY WE TALKED ABOUT THE IMPORTANCE OF A WALKING PROGRAM TO RECONDITION HER LOWER BACK AND IMPROVE TOLERANCE TO ACTIVITIES. THIS COULD ALSO HELP WITH WEIGHT REDUCTION . WE TALKED ABOUT WALKING FOR 10 MINUTES ON A FLAT SURFACE EVERY OTHER DAY AND OVER THE COURSE OF 2 OR 3 MONTHS INCREASE TO 20 MINUTES EVERY OTHER DAY. SHE COULD ALSO BENEFIT FROM HAVING PT EVALUATION AGAIN AND HOPEFULLY HAVE REGULAR VISITS WITH PHYSICAL THERAPY. PATIENT WILL CALL OUR OFFICE SHOULD HER CONDITION WORSEN WHERE SHE WOULD WANT TO CONSIDER AGGRESSIVE TREATMENT FOR UNCONTROLLED LOW BACK PAIN OR RADICULAR SYMPTOMS. 08/26/20 1015 DISCUSSED WITH PATIENT CURRENT TREATMENT PLAN, PATIENT VERBALIZES UNDERSTANDING, NO QUSTIONS OR CONCERNS AT THIS TIME. PROCEDURE CODES FA211 ESTABILISHED PATIENT [facility] CHARGE DISPOSITION & COMMUNICATION FOLLOW UP PATIENT WILL CALL FOR FOLLOW-UP IF NECESSARY (REASON: LOW BACK PAIN/LOWER EXTREMITY BURNING PAIN) ELECTRONICALLY SIGNED BY ZINA LUNDBERG ON 08/27/2020 AT 12:51 PM EST DISCLAIMER : THIS IS A VISIT SUMMARY EXTRACTED FROM THE [employer] CHART. IT IS NOT A COPY OF THE [employer] PROGRESS NOTE. ANNI
== END ==
LOC: M PAIN 09:30
PROVIDERS: ATTEND Nurse Practitioner Family
DX: G89.29 Other chronic pain (principal); G62.9 Polyneuropathy, unspecified; M54.5 Low back pain; K21.9 Gastro-esophageal reflux disease without esophagitis; E04.1 Nontoxic single thyroid nodule; G47.33 Obstructive sleep apnea (adult) (pediatric); Z79.899 Other long term (current) drug therapy; Z88.8 Allergy status to other drugs, medicaments and biological substances

== ENCOUNTER → 2020-11-17 | Outpatient (CLI) | payer OTHER ==
--- NOTE | 2020-11-17 10:21 | REPMRS ---
Patient History The patient states she had a clinical breast exam in July 2020. No known family history of cancer. Benign US guided breast biopsy. of the right breast, December 12, 2019. Took estrogen for 11 years 11 months. Digital Woman Screen Mammo: November 17, 2020 - Exam #: [id number] Bilateral CC and MLO view(s) were taken. Technologist: Dang Parker, Technologist Prior study comparison: July 03, 2020, right breast diagnostic unilateral mammo performed at [facility]. July 03, 2020, right breast ultrasound unilat limited performed at [facility]. December 12, 2019, right breast diagnostic unilateral mammo performed at [facility]. November 26, 2019, right breast ultrasound unilat limited performed at [facility]. November 01, 2018, bilateral digital woman screen mammo performed at [facility]. October 20, 2017, digital woman screen mammo performed at [facility]. FINDINGS: The breast tissue is heterogeneously dense. This may lower the sensitivity of mammography. The [employer] volumetric breast density category is: C. The previously identified upper outer quadrant cyst is again seen in the right breast. This is less prominent on craniocaudal view than on previous study. There is a marker clip] in the superomedial quadrant of the right breast unchanged. There is a stable superficial well-defined nodule in the inferomedial aspect of the left breast unchanged from multiple prior studies. There is a moderate amount of heterogeneously dense fibroglandular tissue which is fairly symmetric. There is no interval development of dominant mass, architectural distortion, or grouped microcalcification typical of malignancy. There has been no change in the appearance of the mammogram from the prior studies. 3-D tomosynthesis shows no additional findings. Assessment: BI-RADS/ACR category 2 mammogram. Benign Findings. Recommendation Routine screening mammogram of both breasts in 1 year (for women over age 40). This patient's [facility] Lifetime Breast Cancer RIsk is estimated at 6.2 %. This mammogram was interpreted with the aid of an FDA-approved computer-aided dectection system. Electronically Signed By: Jose Machado MD 11/17/20 [id number]
== END ==
LOC: M WHC 09:32
PROVIDERS: ATTEND Nurse Practitioner Women's Health
DX: Z12.31 Encounter for screening mammogram for malignant neoplasm of breast (principal); N60.01 Solitary cyst of right breast; N63.20 Unspecified lump in the left breast, unspecified quadrant

== ENCOUNTER → 2020-11-27 | Outpatient (REF) | payer OTHER ==
[2020-11-27 13:40] LABS: BLOOD UREA NITROGEN 11 MG/DL (7-18); CREATININE FOR GFR 0.72 MG/DL (0.55-1.30); GLOMERULAR FILTRATION RATE > 60.0 (>51)
== END ==
LOC: M LABDRWAD 12:12
PROVIDERS: ATTEND Neurological Surgery
DX: D32.0 Benign neoplasm of cerebral meninges (principal)

== ENCOUNTER → 2020-12-05 | Outpatient (REF) | payer OTHER ==
[2020-12-05 13:01] LABS: BASO # 0.1 10^3/uL (0.0-0.2); BASO % 0.9 % (0.0-1.0); EOS # 0.1 10^3/uL (0.0-0.5); EOS % 0.9 % (0.0-3.0); HEMATOCRIT 38.7 % (36.0-47.0); HEMOGLOBIN 13.4 g/dl (12.0-15.5); LYMPH # 2.9 10^3/uL (1.5-5.0); LYMPH % 38.2 % (24.0-44.0); MEAN CORPUSCULAR HEMOGLOBIN 32.8 pg (27.0-33.0); MEAN CORPUSCULAR HGB CONC 34.6 g/dl (32.0-36.5); MEAN CORPUSCULAR VOLUME 94.6 fl (80.0-96.0); MONO # 0.7 10^3/uL (0.0-0.8); MONO % 9.8 % (2.0-8.0); NEUTROPHILS # 3.7 10^3/uL (1.5-8.5); NEUTROPHILS % 49.5 % (36.0-66.0); PLATELET COUNT, AUTOMATED 441 10^3/uL (150-450); RED BLOOD COUNT 4.09 10^6/uL (4.00-5.40); WHITE BLOOD COUNT 7.5 10^3/uL (4.0-10.0)
[2020-12-05 13:28] LABS: ALBUMIN 3.5 GM/DL (3.2-5.2); ALT/SGPT 34 U/L (12-78); BILIRUBIN,TOTAL 0.2 MG/DL (0.2-1.0); BLOOD UREA NITROGEN 11 MG/DL (7-18); CALCIUM LEVEL 9.1 MG/DL (8.5-10.1); CARBON DIOXIDE LEVEL 32 MEQ/L (21-32); CHLORIDE LEVEL 94 MEQ/L (98-107); GLOMERULAR FILTRATION RATE > 60.0 (>51); GLUCOSE, FASTING 102 MG/DL (70-100); POTASSIUM SERUM 3.7 MEQ/L (3.5-5.1); SODIUM LEVEL 133 MEQ/L (136-145); TOTAL PROTEIN 6.5 GM/DL (6.4-8.2)
== END ==
LOC: M SFHCADAM 09:22
PROVIDERS: ATTEND Physician Assistant Medical
DX: I10 Essential (primary) hypertension (principal); F17.210 Nicotine dependence, cigarettes, uncomplicated; K21.9 Gastro-esophageal reflux disease without esophagitis; G47.33 Obstructive sleep apnea (adult) (pediatric); Z51.81 Encounter for therapeutic drug level monitoring

== ENCOUNTER → 2020-12-16 | Outpatient (CLI) | payer OTHER ==
--- NOTE | 2020-12-16 11:08 | DEXAMM ---
INDICATION: Z78.0 MENOPAUSE. COMPARISON: 11/01/2018 as well as other prior exams. TECHNIQUE: Bone density was measured using dual-energy x-ray absorptiometry (DEXA). FINDINGS: AP SPINE L1-L4 BMD 1.255 g/cm2 Young Adult T-Score 0.5 Age Matched Z-Score 1.6. LT FEMUR, TOTAL BMD 0.997 g/cm2 Young Adult T-Score -0.1 Age Matched Z-Score 0.8. LT NECK BMD 0.926 g/cm2 Young Adult T-Score -0.8 Age Matched Z-Score 0.4. RT FEMUR, TOTAL BMD 0.978 g/cm2 Young Adult T-Score -0.2 Age Matched Z-Score 0.6. RT NECK BMD 0.938 g/cm2 Young Adult T-Score -0.7 Age Matched Z-Score 0.5. IMPRESSION: There is normal bone density of the spine. There is normal bone density of the left hip. There is normal bone density of the right hip. The density of the spine has decreased 3.6% since the initial exam on 03/24/2006. The density of the spine increased 3.0% since most recent exam on 11/01/2018. The density of the left hip has decreased 6.0% since initial exam on 03/24/2006. The density of the left hip has decreased 2.7% since most recent exam on 11/01/2018. The density of the right hip has decreased 8.0% since the initial exam on 03/24/2006. The density of the right hip has decreased 1.6% since the most recent exam on 11/01/2018. FOLLOW-UP: Recommendation for the next bone density exam: 2 years. <Electronically signed by Randy Trejo > 12/16/20 1101
== END ==
LOC: M WHC 09:57
PROVIDERS: ATTEND Physician Assistant Medical
DX: Z78.0 Asymptomatic menopausal state (principal)

== ENCOUNTER → 2021-05-26 | Outpatient (REF) | payer OTHER | LOC: M SFHCADAM 08:42 | PROVIDERS: ATTEND Physician Assistant Medical | DX: F17.210 Nicotine dependence, cigarettes, uncomplicated (principal); K21.9 Gastro-esophageal reflux disease without esophagitis; G47.33 Obstructive sleep apnea (adult) (pediatric); I10 Essential (primary) hypertension; Z53.9 Procedure and treatment not carried out, unspecified reason ==

== ENCOUNTER → 2021-05-27 | Outpatient (REF) | payer OTHER ==
[2021-05-27 13:46] LABS: ALBUMIN 3.6 GM/DL (3.2-5.2); ALT/SGPT 32 U/L (12-78); BILIRUBIN,TOTAL 0.3 MG/DL (0.2-1.0); BLOOD UREA NITROGEN 9 MG/DL (7-18); CALCIUM LEVEL 9.5 MG/DL (8.5-10.1); CARBON DIOXIDE LEVEL 29 MEQ/L (21-32); CHLORIDE LEVEL 98 MEQ/L (98-107); CHOLESTEROL LEVEL 152 MG/DL (<200); CREATININE FOR GFR 0.61 MG/DL (0.55-1.30); GLOMERULAR FILTRATION RATE > 60.0 (>51); GLUCOSE, FASTING 82 MG/DL (70-100); HDL CHOLESTEROL 40 MG/DL (>40); LDL CHOLESTEROL 82 MG/DL (<100); NON-HDL-C 112 MG/DL; POTASSIUM SERUM 3.9 MEQ/L (3.5-5.1); SODIUM LEVEL 133 MEQ/L (136-145); TOTAL PROTEIN 6.7 GM/DL (6.4-8.2); TRIGLYCERIDES LEVEL 148 MG/DL (<150)
== END ==
LOC: M SFHCADAM 12:25
PROVIDERS: ATTEND Physician Assistant Medical
DX: F17.210 Nicotine dependence, cigarettes, uncomplicated (principal); K21.9 Gastro-esophageal reflux disease without esophagitis; G47.33 Obstructive sleep apnea (adult) (pediatric); I10 Essential (primary) hypertension

== ENCOUNTER → 2021-07-01 | Outpatient (REF) | payer OTHER | LOC: M SFHCADAM 16:02 | PROVIDERS: ATTEND Physician Assistant | DX: R09.81 Nasal congestion (principal) ==

== ENCOUNTER → 2021-11-25 | Outpatient (REF) | payer OTHER ==
[~2021-11-25] MED LIST changes: +OMEP-173 PO; -OMEP-218 PO
[2021-11-25 16:56] LABS: BLOOD UREA NITROGEN 10 MG/DL (7-18); CREATININE FOR GFR 0.72 MG/DL (0.55-1.30); GLOMERULAR FILTRATION RATE > 60.0 (>51)
== END ==
LOC: M LABDRWAD 15:54
PROVIDERS: ATTEND Physician Assistant
DX: D32.0 Benign neoplasm of cerebral meninges (principal)

== ENCOUNTER → 2021-11-30 | Outpatient (REF) | payer OTHER ==
[2021-11-30 12:51] LABS: BASO # 0.1 10^3/uL (0.0-0.2); BASO % 1.4 % (0.0-1.0); EOS # 0.1 10^3/uL (0.0-0.5); EOS % 1.7 % (0.0-3.0); HEMATOCRIT 38.4 % (36.0-47.0); HEMOGLOBIN 13.4 g/dl (12.0-15.5); LYMPH # 2.2 10^3/uL (1.5-5.0); LYMPH % 37.3 % (24.0-44.0); MEAN CORPUSCULAR HEMOGLOBIN 32.5 pg (27.0-33.0); MEAN CORPUSCULAR HGB CONC 34.9 g/dl (32.0-36.5); MEAN CORPUSCULAR VOLUME 93.2 fl (80.0-96.0); MONO # 0.7 10^3/uL (0.0-0.8); NEUTROPHILS # 2.7 10^3/uL (1.5-8.5); NEUTROPHILS % 47.1 % (36.0-66.0); PLATELET COUNT, AUTOMATED 385 10^3/uL (150-450); RED BLOOD COUNT 4.12 10^6/uL (4.00-5.40); WHITE BLOOD COUNT 5.8 10^3/uL (4.0-10.0)
[2021-11-30 13:21] LABS: ALBUMIN 3.4 GM/DL (3.2-5.2); ALT/SGPT 28 U/L (12-78); BILIRUBIN,TOTAL 0.3 MG/DL (0.2-1.0); BLOOD UREA NITROGEN 9 MG/DL (7-18); CALCIUM LEVEL 9.1 MG/DL (8.5-10.1); CARBON DIOXIDE LEVEL 27 MEQ/L (21-32); CHLORIDE LEVEL 94 MEQ/L (98-107); CHOLESTEROL LEVEL 141 MG/DL (<200); CHOLESTEROL RISK RATIO 3.357 (<5); CREATININE FOR GFR 0.58 MG/DL (0.55-1.30); GLOMERULAR FILTRATION RATE > 60.0 (>51); GLUCOSE, FASTING 85 MG/DL (70-100); HDL CHOLESTEROL 42 MG/DL (>40); LDL CHOLESTEROL 75 MG/DL (<100); NON-HDL-C 99 MG/DL; POTASSIUM SERUM 3.8 MEQ/L (3.5-5.1); SODIUM LEVEL 131 MEQ/L (136-145); TOTAL PROTEIN 6.4 GM/DL (6.4-8.2); TRIGLYCERIDES LEVEL 122 MG/DL (<150)
[2021-11-30 13:34] LABS: TOTAL 25(OH) VITAMIN D 56.5 NG/ML (30.0-100.0)
== END ==
LOC: M SFHCADAM 08:33
PROVIDERS: ATTEND Physician Assistant Medical
DX: I50.32 Chronic diastolic (congestive) heart failure (principal); E04.2 Nontoxic multinodular goiter

== ENCOUNTER → 2021-12-24 | Outpatient (CLI) | payer OTHER | LOC: M WHC 12:58 | PROVIDERS: ATTEND Physician Assistant Medical | DX: Z12.31 Encounter for screening mammogram for malignant neoplasm of breast (principal) ==

== ENCOUNTER → 2023-01-13 | Outpatient (REF) | payer OTHER ==
[2023-01-13 17:50] LABS: BASO # 0.1 10^3/uL (0.0-0.2); BASO % 1.1 % (0.0-1.0); EOS # 0.1 10^3/uL (0.0-0.5); EOS % 0.8 % (0.0-3.0); HEMATOCRIT 38.7 % (36.0-47.0); HEMOGLOBIN 13.4 g/dl (12.0-15.5); LYMPH # 3.1 10^3/uL (1.5-5.0); LYMPH % 38.5 % (24.0-44.0); MEAN CORPUSCULAR HEMOGLOBIN 32.8 pg (27.0-33.0); MEAN CORPUSCULAR HGB CONC 34.6 g/dl (32.0-36.5); MEAN CORPUSCULAR VOLUME 94.9 fl (80.0-96.0); MONO # 0.8 10^3/uL (0.0-0.8); MONO % 10.1 % (2.0-8.0); NEUTROPHILS # 3.9 10^3/uL (1.5-8.5); NEUTROPHILS % 48.9 % (36.0-66.0); PLATELET COUNT, AUTOMATED 383 10^3/uL (150-450); RED BLOOD COUNT 4.08 10^6/uL (4.00-5.40)
[2023-01-13 18:11] LABS: ALBUMIN 3.8 G/DL (3.2-5.2); ALKALINE PHOSPHATASE 86 U/L (46-116); ALT/SGPT 29 U/L (7.0-40); AST/SGOT 17 U/L (<34); BILIRUBIN,TOTAL 0.3 MG/DL (0.3-1.2); BLOOD UREA NITROGEN 11 MG/DL (9-23); CALCIUM LEVEL 9.7 MG/DL (8.3-10.6); CARBON DIOXIDE LEVEL 31 MMOL/L (20-31); CHLORIDE LEVEL 97 MMOL/L (98-107); CHOLESTEROL LEVEL 142 MG/DL (<200); CHOLESTEROL RISK RATIO 3.51 (<5); CREATININE FOR GFR 0.67 MG/DL (0.55-1.30); GLOMERULAR FILTRATION RATE > 60.0 (>45); GLUCOSE, FASTING 97 MG/DL (74-106); HDL CHOLESTEROL 40.4 MG/DL (>40); LDL CHOLESTEROL 70.2 MG/DL (<100); NON-HDL-C 101.6 MG/DL; POTASSIUM SERUM 3.6 MMOL/L (3.5-5.1); SODIUM LEVEL 133 MMOL/L (136-145); TOTAL PROTEIN 6.5 G/DL (5.7-8.2); TRIGLYCERIDES LEVEL 157 MG/DL (<150)
[2023-01-13 18:12] LABS: THYROID STIMULATING HORMONE 0.656 uIU/ML (0.55-4.78); TOTAL 25(OH) VITAMIN D 54.8 NG/ML (20.0-100.0)
== END ==
LOC: M SFHCADAM 14:59
PROVIDERS: ATTEND Physician Assistant Medical
DX: I50.32 Chronic diastolic (congestive) heart failure (principal); K21.9 Gastro-esophageal reflux disease without esophagitis; G47.33 Obstructive sleep apnea (adult) (pediatric); I10 Essential (primary) hypertension

== ENCOUNTER → 2023-01-25 | Outpatient (CLI) | payer OTHER | LOC: M WHC 10:36 | PROVIDERS: ATTEND Physician Assistant Medical | DX: Z12.31 Encounter for screening mammogram for malignant neoplasm of breast (principal) ==

== ENCOUNTER → 2023-01-26 | Outpatient (CLI) | payer OTHER | LOC: M CARPUL 08:04 | PROVIDERS: ATTEND Physician Assistant Medical | DX: R06.02 Shortness of breath (principal) ==

== ENCOUNTER → 2023-03-15 | Outpatient (CLI) | payer OTHER | LOC: M RAD 12:38 | PROVIDERS: ATTEND Physician Assistant Medical | DX: F17.210 Nicotine dependence, cigarettes, uncomplicated (principal) ==

== ENCOUNTER → 2023-08-01 | Outpatient (REF) | payer OTHER ==
[~2023-08-01] MED LIST changes: -OXYB5TAB10 PO; +OXYB5TAB11 PO
[2023-08-01 18:00] LABS: BLOOD UREA NITROGEN 12 MG/DL (9-23); CREATININE FOR GFR 0.58 MG/DL (0.55-1.30); GLOMERULAR FILTRATION RATE > 60.0 (>45)
== END ==
LOC: M LABDRWAD 16:36
PROVIDERS: ATTEND Psychiatry & Neurology Neurology
DX: I10 Essential (primary) hypertension (principal)

== ENCOUNTER → 2024-02-06 | Outpatient (CLI) | payer OTHER ==
[~2024-02-06] MED LIST changes: -OXYB5TAB11 PO; +OXYB5TAB14 PO
== END ==
LOC: M WHC 09:53
PROVIDERS: ATTEND Physician Assistant Medical
DX: Z12.31 Encounter for screening mammogram for malignant neoplasm of breast (principal); R92.8 Other abnormal and inconclusive findings on diagnostic imaging of breast

== ENCOUNTER → 2024-02-29 | Outpatient (CLI) | payer OTHER | LOC: M WHC 13:24 | PROVIDERS: ATTEND Physician Assistant Medical | DX: Z12.31 Encounter for screening mammogram for malignant neoplasm of breast (principal) | CPT/HCPCS: 77065; G0279 ==

== ENCOUNTER → 2024-04-11 | Outpatient (REF) | payer OTHER ==
[2024-04-11 14:34] LABS: ALBUMIN 3.4 G/DL (3.2-5.2); ALKALINE PHOSPHATASE 82 U/L (46-116); ALT/SGPT 20 U/L (7.0-40); AST/SGOT 12 U/L (<34); BILIRUBIN,TOTAL 0.3 MG/DL (0.3-1.2); BLOOD UREA NITROGEN 13 MG/DL (9-23); CALCIUM LEVEL 9.8 MG/DL (8.3-10.6); CARBON DIOXIDE LEVEL 30 MMOL/L (20-31); CHLORIDE LEVEL 101 MMOL/L (98-107); CHOLESTEROL LEVEL 128 MG/DL (<200); CHOLESTEROL RISK RATIO 3.97 (<5); CREATININE FOR GFR 0.67 MG/DL (0.55-1.30); GLOMERULAR FILTRATION RATE > 60.0 (>45); GLUCOSE, FASTING 87 MG/DL (74-106); HDL CHOLESTEROL 32.2 MG/DL (>40); LDL CHOLESTEROL 62.4 MG/DL (<100); NON-HDL-C 95.8 MG/DL; POTASSIUM SERUM 3.7 MMOL/L (3.5-5.1); SODIUM LEVEL 134 MMOL/L (136-145); TOTAL PROTEIN 6.3 G/DL (5.7-8.2); TRIGLYCERIDES LEVEL 167 MG/DL (<150)
[2024-04-11 14:35] LABS: THYROID STIMULATING HORMONE 0.789 uIU/ML (0.55-4.78)
[2024-04-11 14:41] LABS: BASO # 0.1 10^3/uL (0.0-0.2); BASO % 1.7 % (0.0-1.0); EOS # 0.1 10^3/uL (0.0-0.5); EOS % 1.4 % (0.0-3.0); HEMATOCRIT 37.2 % (36.0-47.0); LYMPH # 2.7 10^3/uL (1.5-5.0); LYMPH % 41.9 % (24.0-44.0); MEAN CORPUSCULAR HEMOGLOBIN 33.3 pg (27.0-33.0); MEAN CORPUSCULAR HGB CONC 34.9 g/dl (32.0-36.5); MEAN CORPUSCULAR VOLUME 95.4 fl (80.0-96.0); MONO # 0.8 10^3/uL (0.0-0.8); MONO % 12.4 % (2.0-8.0); NEUTROPHILS # 2.7 10^3/uL (1.5-8.5); PLATELET COUNT, AUTOMATED 411 10^3/uL (150-450); WHITE BLOOD COUNT 6.5 10^3/uL (4.0-10.0)
[2024-04-11 15:11] LABS: HEMOGLOBIN A1c 5.1 % (4.0-6.0)
== END ==
LOC: M SFHCADAM 10:17
PROVIDERS: ATTEND Physician Assistant Medical
DX: I50.32 Chronic diastolic (congestive) heart failure (principal); I10 Essential (primary) hypertension; G47.33 Obstructive sleep apnea (adult) (pediatric); F17.210 Nicotine dependence, cigarettes, uncomplicated

== ENCOUNTER → 2024-04-27 | Outpatient (CLI) | payer OTHER | LOC: M PLAIMG 09:58 | PROVIDERS: ATTEND Physician Assistant Medical | DX: I50.32 Chronic diastolic (congestive) heart failure (principal); I27.20 Pulmonary hypertension, unspecified; I34.0 Nonrheumatic mitral (valve) insufficiency; I36.1 Nonrheumatic tricuspid (valve) insufficiency ==

== ENCOUNTER → 2024-06-27 | Outpatient (CLI) | payer OTHER | LOC: M RAD 08:36 | PROVIDERS: ATTEND Physician Assistant Medical | DX: Z12.2 Encounter for screening for malignant neoplasm of respiratory organs (principal); F17.210 Nicotine dependence, cigarettes, uncomplicated; R91.8 Other nonspecific abnormal finding of lung field; N28.1 Cyst of kidney, acquired ==

== ENCOUNTER → 2024-10-04 | Outpatient (CLI) | payer OTHER | LOC: M ADAMS 14:33 | PROVIDERS: ATTEND Physician Assistant Medical | DX: M25.562 Pain in left knee (principal) ==

== ENCOUNTER → 2024-10-04 | Outpatient (REF) | payer OTHER ==
[2024-10-04 17:48] LABS: HEMATOCRIT 38.8 % (36.0-47.0); HEMOGLOBIN 13.6 g/dl (12.0-15.5); MEAN CORPUSCULAR HEMOGLOBIN 33.3 pg (27.0-33.0); MEAN CORPUSCULAR HGB CONC 35.1 g/dl (32.0-36.5); MEAN CORPUSCULAR VOLUME 94.9 fl (80.0-96.0); PLATELET COUNT, AUTOMATED 410 10^3/uL (150-450); RED BLOOD COUNT 4.09 10^6/uL (4.00-5.40); WHITE BLOOD COUNT 6.9 10^3/uL (4.0-10.0)
[2024-10-04 17:59] LABS: HEMOGLOBIN A1c 5.1 % (4.0-6.0)
[2024-10-04 18:14] LABS: ALBUMIN 3.4 G/DL (3.2-5.2); ALKALINE PHOSPHATASE 79 U/L (35-104); ALT/SGPT 16 U/L (7.0-40); AST/SGOT 14 U/L (<34); BILIRUBIN,TOTAL 0.2 MG/DL (0.3-1.2); BLOOD UREA NITROGEN 15 MG/DL (9-23); CALCIUM LEVEL 9.8 MG/DL (8.3-10.6); CARBON DIOXIDE LEVEL 30 MMOL/L (20-31); CHLORIDE LEVEL 99 MMOL/L (98-107); CHOLESTEROL LEVEL 128 MG/DL (<200); CHOLESTEROL RISK RATIO 3.47 (<5); CREATININE FOR GFR 0.63 MG/DL (0.55-1.30); GLOMERULAR FILTRATION RATE > 60.0 (>45); GLUCOSE, FASTING 109 MG/DL (74-106); HDL CHOLESTEROL 36.8 MG/DL (>40); LDL CHOLESTEROL 61.4 MG/DL (<100); NON-HDL-C 91.2 MG/DL; POTASSIUM SERUM 3.2 MMOL/L (3.5-5.1); SODIUM LEVEL 136 MMOL/L (136-145); TOTAL PROTEIN 6.8 G/DL (5.7-8.2); TRIGLYCERIDES LEVEL 149 MG/DL (<150)
[2024-10-04 18:15] LABS: THYROID STIMULATING HORMONE 0.799 uIU/ML (0.55-4.78)
[2024-10-04 18:16] LABS: FREE T4 1.39 NG/DL (0.89-1.76)
[2024-10-04 18:54] LABS: ATYPICAL LYMPH 9 % (0-5); BASOPHILS 2 % (0-1); LYMPHOCYTES 48 % (16-44); MONOCYTES 2 % (0-5); NEUTROPHILS 39 % (28-66); PLATELET ESTIMATE NORMAL (NORMAL)
== END ==
LOC: M SFHCADAM 14:09
PROVIDERS: ATTEND Physician Assistant Medical
DX: I50.32 Chronic diastolic (congestive) heart failure (principal); G47.33 Obstructive sleep apnea (adult) (pediatric); K21.9 Gastro-esophageal reflux disease without esophagitis; I11.0 Hypertensive heart disease with heart failure

== ENCOUNTER → 2025-02-12 | Outpatient (CLI) | payer OTHER | LOC: M WHC 10:59 | PROVIDERS: ATTEND Physician Assistant Medical | DX: Z12.31 Encounter for screening mammogram for malignant neoplasm of breast (principal) ==

== ENCOUNTER → 2025-04-23 | Outpatient (CLI) | payer OTHER ==
[~2025-04-23] MED LIST changes: +DEPA250T PO; -DEPA250T2 PO
== END ==
LOC: M RAD 16:59
PROVIDERS: ATTEND Physician Assistant
DX: M25.531 Pain in right wrist (principal)

== ENCOUNTER → 2025-05-09 | Outpatient (REF) | payer OTHER ==
[2025-05-09 17:10] LABS: ALT/SGPT 19 U/L (7.0-40); AST/SGOT 15 U/L (<34)
== END ==
LOC: M SFHCADAM 11:48
PROVIDERS: ATTEND Physician Assistant Medical
DX: B35.1 Tinea unguium (principal)

== ENCOUNTER → 2025-05-17 | Outpatient (CLI) | payer OTHER ==
[2025-05-17 16:26] LABS: CREATININE FOR GFR 0.65 MG/DL (0.55-1.30); GLOMERULAR FILTRATION RATE > 90.0 (>45)
== END ==
LOC: M PLALAB 13:58
PROVIDERS: ATTEND Psychiatry & Neurology Neurology
DX: I10 Essential (primary) hypertension (principal)

== ENCOUNTER → 2025-06-18 | Outpatient (REF) | payer OTHER ==
[2025-06-18 14:50] LABS: ALT/SGPT 20 U/L (7.0-40); AST/SGOT 17 U/L (<34)
== END ==
LOC: M SFHCADAM 10:17
PROVIDERS: ATTEND Physician Assistant Medical
DX: B35.1 Tinea unguium (principal)

== ENCOUNTER → 2025-07-24 | Outpatient (REF) | payer OTHER ==
[2025-07-24 14:17] LABS: CREATININE FOR GFR 0.61 MG/DL (0.55-1.30); GLOMERULAR FILTRATION RATE > 90.0 (>45)
== END ==
LOC: M LABDRWAD 13:05
PROVIDERS: ATTEND Psychiatry & Neurology Neurology
DX: I10 Essential (primary) hypertension (principal)

== ENCOUNTER → 2025-08-14 | Outpatient (CLI) | payer OTHER | LOC: M RAD 13:31 | PROVIDERS: ATTEND Physician Assistant Medical | DX: Z12.2 Encounter for screening for malignant neoplasm of respiratory organs (principal); F17.210 Nicotine dependence, cigarettes, uncomplicated ==

== ENCOUNTER → 2025-09-24 | Outpatient (REF) | payer OTHER ==
[2025-09-24 14:54] LABS: PLATELET COUNT, AUTOMATED 429 10^3/uL (150-450)
[2025-09-24 15:16] LABS: ALT/SGPT 18 U/L (7.0-40); AST/SGOT 16 U/L (<34); CALCIUM LEVEL 9.8 MG/DL (8.3-10.6); CARBON DIOXIDE LEVEL 30 MMOL/L (20-31); CHLORIDE LEVEL 101 MMOL/L (98-107); CHOLESTEROL LEVEL 138 MG/DL (<200); CHOLESTEROL RISK RATIO 3.58 (<5); CREATININE FOR GFR 0.62 MG/DL (0.55-1.30); GLOMERULAR FILTRATION RATE > 90.0 (>45); LDL CHOLESTEROL 69.7 MG/DL (<100); NON-HDL-C 99.5 MG/DL; POTASSIUM SERUM 4.3 MMOL/L (3.5-5.1); SODIUM LEVEL 136 MMOL/L (136-145); TRIGLYCERIDES LEVEL 149 MG/DL (<150)
== END ==
LOC: M SFHCADAM 11:05
PROVIDERS: ATTEND Physician Assistant Medical
DX: I50.32 Chronic diastolic (congestive) heart failure (principal); G47.33 Obstructive sleep apnea (adult) (pediatric); K21.9 Gastro-esophageal reflux disease without esophagitis